=== PATIENT | female | born 2000 | race Caucasian/White ===

== ENCOUNTER 2019-02-02 08:10 | Outpatient (CLI) | payer OTHER ==
[2019-02-02] MEDS ORDERED: Iopamidol 370 76% 100 ML VIAL ONE (10:24)
--- NOTE | 2019-02-02 11:55 | CT ---
CT ABDOMEN AND PELVIS WITH ORAL AND IV CONTRAST: HISTORY: Decreased WBCs. Abdominal pain with constipation. COMPARISON: 05/25/2009. FINDINGS: The lung bases are clear. There is a 6 mm low-density lesion in the posterior segment of the right l obe of the liver. The spleen, pancreas, adrenal glands, and kidneys are unremarkable. No calcified gallstones are seen. No free air, free fluid, or lymphadenopathy is seen in the abdomen or pelvis. Uterus and ovaries are present. A normal-appearing appendix is noted. The small bowel loops are not abnormally dilated. The aorta is of normal caliber. The bony structures are unremarkable. IMPRESSION: A 6 mm low-density lesion in the right lobe of the liver; otherwise, unremarkable exam. POS: [facility]
== END 2019-02-02 08:11 | disposition home or self-care (01) ==
LOC: CT 08:10
PROVIDERS: ATTEND Internal Medicine Gastroenterology
DX: D72.819 Decreased white blood cell count, unspecified (principal); D69.8 Other specified hemorrhagic conditions; R10.9 Unspecified abdominal pain; K76.9 Liver disease, unspecified
CPT/HCPCS: 74177

== ENCOUNTER 2023-11-01 00:14 | Emergency (ER) | payer BC ==
[2023-11-01 00:57] LABS: #Basophils Less than 0.03 10x3/uL (0.0-0.2); #Eosinphils Less than 0.03 10x3/uL (0.0-0.7); %Basophils 0.1 % (0.0-1.0); %Eosinophils 0.2 % (0.0-10.0); %Lymphocytes 9.4 % (21.0-51.0); %Monocytes 10.8 % (0.0-10.0); %Neutrophils 79.1 % (42.0-75.0); Hematocrit 33.2 % (36.0-47.0); Hemoglobin 11.2 g/dL (12.0-16.0); Mean Corpuscular HGB CONC 33.7 g/dL (32.0-36.0); Mean Corpuscular Hemoglobin 30.4 pg (27.0-31.0); Mean Platelet Volume 11.1 fL (7.4-10.4); Platelet Count 214 10x3/uL (130-400); RBC Distribution Width 11.9 % (11.5-14.5); Red Blood Cell (RBC) Count 3.69 mill/uL (4.20-5.40)
[2023-11-01] MEDS ORDERED: Ibuprofen 800 MG TAB ONE (01:02)
[2023-11-01] MEDS ORDERED: cefTRIAXone (ROCEPHIN) 1 GM VIAL ONE (01:02)
[2023-11-01] MEDS ORDERED: Sodium Chloride 0.9% 100 ML ONE (01:02)
[2023-11-01 01:19] LABS: ALT (SGPT) 8 U/L (8-55); AST (SGOT) 12 U/L (5-34); Albumin 3.4 g/dL (3.5-5.0); Alkaline Phosphatase 63 U/L (40-110); Anion Gap 14 mmol/L (10-20); BUN (Urea Nitrogen) 6 mg/dL (7.0-18.7); Bilirubin, Total 0.2 mg/dL (0.2-1.2); Calc. Creatinine Clearance 0 mL/min (70-130); Calcium 9.4 mg/dL (7.8-10.44); Carbon Dioxide 22 mmol/L (22-29); Chloride 104 mmol/L (98-107); Estimated GFR 125; Globulin 3.9 g/dL (2.4-3.5); Glucose 130 mg/dL (70-105); Lipase 13 U/L (8-78); Potassium 3.6 mmol/L (3.5-5.1); Protein, Total 7.3 g/dL (6.0-8.3); Sodium 136 mmol/L (136-145)
[2023-11-01 01:26] LABS: BHCG - Serum Negative (NEGATIVE); Pregs Control Background? CLEAR/WHITE (CLR/WHITE); Pregs Control Bar Appear? YES (CONTROL BAR)
[2023-11-01 01:26] LABS: Bilirubin Negative (Negative); Blood, Urine Trace (Negative); CAUTI Indications for Culture Fever or rigors; Clarity Clear (Clear); Glucose, Urine (Dipstick) Normal (Negative); Ketone, Urine Negative (Negative); Leukocyte 250 Leu/uL (Negative); Nitrite 1+ (Negative); Protein, Urine (Dipstick) 20 mg/dL (Neg-Trace); Specific Gravity, Urine 1.012 (1.002-1.036); WBC/HPF 21-50 HPF (0-3); pH, Urine 7.5 (5.0-9.0)
[2023-11-01 01:28] LABS: Bacteria/HPF 1+ HPF (None Seen)
[2023-11-01 01:29] LABS: Urine Culture Reflex Yes Yes
[2023-11-01 12:27] LABS: Chlamydia by PCR, Vaginal Swab Not Detected (NotDetected); GC by PCR, Vaginal Swab Not Detected (NotDetected)
== END 2023-11-01 03:25 | disposition home or self-care (01) ==
LOC: ERS 00:14
DX: N10 Acute pyelonephritis (principal); R11.10 Vomiting, unspecified
CPT/HCPCS: 36415; 74176; 76705; 80053; 81001; 83605; 83690; 84703; 85025; 87040; 87086; 87480; 87491; 87510; 87591; 87660; 93005; 96374; J0696; J3490